=== PATIENT | male | born 1985 | race Caucasian/White ===

== ENCOUNTER 2022-02-16 09:50 | Outpatient (CLI) | payer BC, SELFPAY ==
--- NOTE | ~2022-02-16 | MR_ITS ---
EXAMINATION: MR brain/brain stem wo/w con DATE: 02/16/2022 10:33 INDICATION: Dizziness and giddiness TECHNIQUE: Magnetic resonance imaging (MRI) of the brain and brainstem was performed without and with 18 mL MultiHance intravenous contrast. Sequences included sagittal and axial T1-weighted SE, axial d iffusion-weighted FS EPI ASSET, axial T2*-weighted GRE, axial T2-weighted FLAIR Propeller, and axial T2-weighted Propeller. Postcontrast axial and coronal T1-weighted SE was obtained. Apparent diffusion coefficient (ADC) maps were created. COMPARISON: None. FINDINGS: No abnormal restricted diffusion to suggest acute ischemic infarct. No MRI evidence of hemorrhage or extra-axial collection. No suspicious foci of susceptibility to suggest prior intraparenchymal hemorr howie. Normal white matter signal intensity. No evidence of advanced or lobar predominant parenchymal volume loss. Basilar cisterns are patent. Flow voids are preserved. No abnormal enhancing lesions det ected. Mild mucosal thickening in the right frontal sinus, otherwise the paranasal sinuses and orbits are within normal limits Prominent cervical lymph nodes. Dermal/subcutaneous cysts in the right post erior upper neck. IMPRESSION: Normal brain MRI findings. Dermal/subcutaneous cyst in the right wrist or upper neck and possible cer vical lymphadenopathy, correlate clinically. Reviewed, dictated and finalized at location [facility] IMPRESSION: Normal brain MRI findings. Dermal/subcutaneous cyst in the right wrist or upper neck and possible cervical lymphadenopathy, correlate clinically.
== END 2022-02-16 09:51 ==
LOC: MICIMG 09:53
PROVIDERS: PCP Nurse Practitioner Family; Visit Provider Nurse Practitioner Family
DX: R42 Dizziness and giddiness (principal); M79.89 Other specified soft tissue disorders
CPT/HCPCS: 70553; A9577